=== PATIENT | female | born 1990 | race African-American/Black ===

== ENCOUNTER 2017-11-25 10:31 | Outpatient (REF) | payer BC, SELFPAY ==
--- NOTE | 2017-11-25 09:20 | PAPFT_PTH ---
PATIENT: Kinza Garcia LOC: ART U#:[id number] AGE/SX: 27/F ROOM: RE11/25/[address]: Carla Chang : 1990 BED: DIS: 11/25/2017 SPEC #: [id number] RECD: 11/25/17 12:55 STATUS: MIGUELANGEL REJohn #: [id number] HARRIETT: 11/25/17 09:[address]: Carla Chang DEPT: [facility] Cytology RECD BY: Lorie Simeon ENTERED: 11/25/17 12:55 SP TYPE: PAPFT OTHR DR: Samantha Daugherty Tissues: 1 - CX/ENDOCX FOR PAP SMEARS Procedures: PAP THIN PREP/[facility] Screening Comments: [id number]
[2017-11-28 15:25] LABS: Chlamydia Result Negative; GC Result Negative; Specimen Description CERVIX
== END 2017-11-25 10:32 ==
LOC: LBN 10:31
PROVIDERS: PCP Pediatrics; Visit Provider Obstetrics & Gynecology Gynecology
DX: Z11.3 Encounter for screening for infections with a predominantly sexual mode of transmission (principal); Z12.4 Encounter for screening for malignant neoplasm of cervix
CPT/HCPCS: 87491; 87591; 88142